=== PATIENT | female | born 1985 | race Caucasian/White ===

== ENCOUNTER 2018-10-11 14:44 | Outpatient (CLI) | payer OTHER ==
--- NOTE | 2018-10-11 17:44 | ULT ---
COMPLETE STANDARD OB ULTRASOUND: HISTORY: Anatomy scan. COMPARISON: None. TECHNIQUE: Real-time, rogers-scale, color, and spectral analysis of the gravid uterus is performed. FINDINGS: The cervix is closed and measures 7.7 cm in length. The placenta is posterior and, at presentation, is transverse, with the head to the maternal left. The placenta is low lying, although it does not a ppear to cover the os. A single level intrauterine with a heart rate of 142 beats per minute, as well as an average ultrasound age of 22 weeks 5 days and an estimated date of delivery of 02/09/2019. BIOMETRY: BIPARIETAL DIAMETER: 5.4 cm (22 weeks 4 days). HEAD CIRCUMFERENCE: 20.7 cm (22 weeks 6 days). ABDOMINAL CIRCUMFERENCE: 17.52 cm (22 weeks 4 days). FEMUR LENGTH: 3.95 cm (22 weeks 6 days). AMNIOTIC FLUID INDEX: 11.73 cm. ANATOMY: The head, cerebellum, cisterna magna, lateral ventricles, four-chamber heart, stomach, kidn eys, cord insertion, bladder, and cervical, thoracic, lumbar, and sacral spine, as well as lips/nose, upper extremities, lower extremities, and three vessel cord are all normal. IMPRESSION: 1. Single viable intrauterine with normal anatomy scan. 2. The placenta is low lying although does not cover the internal os. POS: [facility]
== END 2018-10-11 14:45 | disposition home or self-care (01) ==
LOC: BICULT 14:44
PROVIDERS: ATTEND Family Medicine
DX: O09.522 Supervision of elderly multigravida, second trimester (principal)
CPT/HCPCS: 76805

== ENCOUNTER 2018-10-15 09:55 | Emergency (ER) | payer OTHER ==
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
== END 2018-10-15 12:51 | disposition home or self-care (01) ==
LOC: ERS 09:55
DX: O9A.212 Injury, poisoning and certain other consequences of external causes complicating pregnancy, second trimester (principal); S80.02XA Contusion of left knee, initial encounter; S80.01XA Contusion of right knee, initial encounter; O99.332 Smoking (tobacco) complicating pregnancy, second trimester; Z3A.21 21 weeks gestation of pregnancy; V89.2XXA Person injured in unspecified motor-vehicle accident, traffic, initial encounter
CPT/HCPCS: 99406

== ENCOUNTER 2019-02-01 17:02 | Inpatient (IN) | payer OTHER ==
[~2019-02-01 17:02] MED LIST: Bupivacaine 0.25% HCL 30 ML VIAL ONE; Lidocaine 2% MPF 10 ML AMP (For Epidural Use) ONE
[2019-02-01 17:34] VITALS: BMI 38.1
[2019-02-01 18:47] LABS: Hemoglobin 13.2 g/dL (12.0-16.0); Mean Corpuscular HGB CONC 34.2 g/dL (32.0-36.0); Mean Corpuscular Hemoglobin 29.7 pg (27.0-31.0); Mean Corpuscular Volume 86.8 fL (78.0-98.0); Mean Platelet Volume 6.4 fL (7.4-10.4); Platelet Count 329 thou/uL (130-400); RBC Distribution Width 13.5 % (11.5-14.5); Red Blood Cell (RBC) Count 4.45 mill/uL (4.20-5.40); White Blood Cell (WBC) Count 10.2 thou/uL (4.8-10.8)
[2019-02-01 19:01] LABS: Creatinine, Urine 60.24 mg/dL (47-110); Protein, Urine Random Quant Less than 10 mg/dL (1-14)
[2019-02-01 19:07] LABS: ALT (SGPT) 18 U/L (8-55); AST (SGOT) 16 U/L (5-34); Albumin 3.2 g/dL (3.5-5.0); Alkaline Phosphatase 139 U/L (40-150); Anion Gap 14 mmol/L (10-20); BUN (Urea Nitrogen) 10 mg/dL (7.0-18.7); Bilirubin, Total 0.3 mg/dL (0.2-1.2); Calc. Creatinine Clearance 195 mL/min (70-130); Calcium 9.3 mg/dL (7.8-10.44); Carbon Dioxide 18 mmol/L (22-29); Chloride 108 mmol/L (98-107); Estimated GFR-MDRD Greater than 90; Globulin 3.1 g/dL (2.4-3.5); Glucose 119 mg/dL (70-105); Potassium 3.9 mmol/L (3.5-5.1); Protein, Total 6.3 g/dL (6.0-8.3); Sodium 136 mmol/L (136-145)
--- NOTE | 2019-02-01 20:24 | ULT ---
US Biophysical Profile: 02/01/2019 5:53 PM CLINICAL HISTORY: Gestational hypertension. COMPARISON: None. FINDINGS: heart rate: 137 bpm. APOORVA: 14.4 cm Biophysical profile: 8 of 8 IMPRESSION: Normal biophysical profile
[2019-02-01] MEDS ORDERED: NS / Oxytocin 40 units/1000ml 1,000 ML IV PRN (21:37)
[2019-02-01] MEDS ORDERED: Carboprost 250 MCG/ML AMP IM PRN (21:37)
[2019-02-01] MEDS ORDERED: hydrALAZINE 20 MG/ML VIAL SLOW IVP PRN (21:37)
[2019-02-01] MEDS ORDERED: HYDROcodone/Acetaminophen 5/325 mg Tablet PO PRN (21:37)
[2019-02-01] MEDS ORDERED: Misoprostol 200 MCG TAB PR PRN (21:37)
[2019-02-01] MEDS ORDERED: Lidocaine 1% (PF) 30 ML VIAL SC PRN (21:37)
[2019-02-01] MEDS ORDERED: Ibuprofen 800 MG TAB PO PRN (21:37)
[2019-02-01] MEDS ORDERED: Butorphanol Tartrate 1 MG/ML VIAL SLOW IVP PRN (21:37)
[2019-02-01] MEDS ORDERED: Ondansetron PF 4 MG/2 ML Vial IVP PRN (21:37)
[2019-02-01] MEDS ORDERED: Diphenoxylate HCl/Atropine Tablet PO PRN (21:37)
[2019-02-01] MEDS ORDERED: Promethazine HCl 25 MG/ML VIAL IM PRN (21:37)
[2019-02-01] MEDS ORDERED: NS w/ Oxytocin 10 units 500 ML IV SCH ×2 (21:45)
[2019-02-01] MEDS: Lactated Ringer's 1,000 ML IV SCH (22:00)
[2019-02-01] MEDS ORDERED: Penicillin G Potassium 5 MILL.UNITS in Sodium Chloride 0.9% 100 ML IVPB SCH (22:00)
[2019-02-01] MEDS: Misoprostol 100 MCG TAB PO SCH (22:20)
[2019-02-01 22:53] LABS: Syphilis Antibody Nonreactive (Nonreactive); Syphilis Antibody Index 0.02 S/CO (<1.00 Non-Reactive)
[2019-02-01 22:54] LABS: HBSAg Index 0.21 S/CO (0-0.99); Hep B Surf Ag Non-Reactive S/CO (NonReactive)
[2019-02-02] MEDS: Misoprostol 100 MCG TAB PO SCH ×3 (02:14→11:21)
[2019-02-02] MEDS: Penicillin G 2.5 MILL.units 2.5 MILL.UNITS in Premix Bag 1 BAG IVPB SCH ×4 (02:22→14:17)
[2019-02-02] MEDS: Lactated Ringer's 1,000 ML IV SCH ×3 (07:20→15:34)
[2019-02-02] MEDS ORDERED: Misoprostol 100 MCG TAB ONE (11:19)
[2019-02-02] MEDS ORDERED: Fentanyl 4 mcg/Bup 0.1% Cadd 100 ML ONE ×2 (13:36→13:37)
[2019-02-02] MEDS ORDERED: Lidocaine 1.5%/Epinephrine 1:200,000 5 ML AMPUL IJ ONE (13:59)
[2019-02-02] MEDS ORDERED: Milk Of Magnesia 30 ML UDCUP PO PRN (18:25)
[2019-02-02] MEDS ORDERED: Preparation H Ointment 28 GM TUBE PR PRN (18:25)
[2019-02-02] MEDS ORDERED: diphenhydrAMINE 25 MG CAP PO PRN (18:25)
[2019-02-02] MEDS ORDERED: Promethazine HCl 25 MG/ML VIAL IM PRN (18:25)
[2019-02-02] MEDS ORDERED: Benzocaine-Menthol 82.5 ML CAN TOP PRN (18:25)
[2019-02-02] MEDS ORDERED: HYDROcodone/Acetaminophen 5/325 mg Tablet PO PRN ×2 (18:25)
[2019-02-02] MEDS ORDERED: hydrALAZINE 20 MG/ML VIAL SLOW IVP PRN (18:25)
[2019-02-02] MEDS ORDERED: Bisacodyl 10 MG SUPP PR PRN (18:25)
[2019-02-02] MEDS ORDERED: Ondansetron PF 4 MG/2 ML Vial IVP PRN (18:25)
--- NOTE | 2019-02-02 18:34 | RAD ---
ABDOMINAL RADIOGRAPH: 02/02/19 INDICATION: Stat section. Surgical count. FINDINGS: No radiopaque foreign bodies are seen overlying the imaged abdomen and pelvis. There are extrinsic li near densities from overlying artifact. There are scattered subtle areas of air density overlying th e pelvis likely postoperative in nature. POS: [facility]
[2019-02-02] MEDS ORDERED: NS / Oxytocin 40 units/1000ml 1,000 ML IV SCH (19:15)
[2019-02-02] MEDS: Ibuprofen 800 MG TAB PO SCH (21:33)
[2019-02-02] MEDS: Docusate Calcium (SURFAK) 240 MG CAP PO SCH (21:34)
[2019-02-03] MEDS: Ibuprofen 800 MG TAB PO SCH ×2 (06:22→14:25)
[2019-02-03 07:07] LABS: Hemoglobin 13.2 g/dL (12.0-16.0); Mean Corpuscular HGB CONC 34.3 g/dL (32.0-36.0); Mean Corpuscular Volume 87.5 fL (78.0-98.0); Mean Platelet Volume 6.2 fL (7.4-10.4); Platelet Count 320 thou/uL (130-400); RBC Distribution Width 13.5 % (11.5-14.5); Red Blood Cell (RBC) Count 4.41 mill/uL (4.20-5.40); White Blood Cell (WBC) Count 12.6 thou/uL (4.8-10.8)
[2019-02-03] MEDS: Ferrous Sulfate 325 MG TAB PO SCH ×2 (07:32→15:18)
[2019-02-03] MEDS: Penicillin G 2.5 MILL.units 2.5 MILL.UNITS in Premix Bag 1 BAG IVPB SCH (07:37)
[2019-02-03] MEDS: Docusate Calcium (SURFAK) 240 MG CAP PO SCH (08:09)
[2019-02-03] MEDS ORDERED: Adacel (T-DAP) 0.5 ML SYRINGE IM ONE (09:00)
[2019-02-03] MEDS ORDERED: Prenatal Vitamin 1 TAB PO SCH (09:00)
[2019-02-03 17:46] VITALS: BP 146/72; TEMP 97.9
== END 2019-02-03 18:55 | disposition home or self-care (01) | DRG 807 ==
LOC: L&D/OP 17:02 → L&D 21:10 → 3SW 02-02 18:44
PROVIDERS: ADMIT Family Medicine; ATTEND Family Medicine
PROC: 3E0P7VZ Introduction of Hormone into Female Reproductive, Via Natural or Artificial Opening (ICD-10-PCS; principal; 2019-02-02)
PROC: 10E0XZZ Delivery of Products of Conception, External Approach (ICD-10-PCS; 2019-02-02)
PROC: 3E033VJ Introduction of Other Hormone into Peripheral Vein, Percutaneous Approach (ICD-10-PCS; 2019-02-02)
DX: O13.4 Gestational [pregnancy-induced] hypertension without significant proteinuria, complicating childbirth (principal); Z37.0 Single live birth; O99.324 Drug use complicating childbirth; F19.90 Other psychoactive substance use, unspecified, uncomplicated; O70.0 First degree perineal laceration during delivery; Z3A.38 38 weeks gestation of pregnancy
CPT/HCPCS: 36415; 51701; 74018; 76819; 80053; 82570; 84156; 85027; 86780; 86850; 86900; 86901; 87340; 90471; 90715; 90732; 99285; G0009; J2001; J2540; J3490; S0020